=== PATIENT | female | born 1950 | race Caucasian/White ===

== ENCOUNTER 2019-06-29 08:47 | Inpatient (IN) ==
--- NOTE | 2019-06-29 10:00 | PROVIDER DOCUMENTATION ---
HPI-Musculoskeletal Pain/Inj - GENERAL Chief Complaint: Fall Stated Complaint: LT ANKLE PAIN Time Seen by Provider: 06/29/19 09:15 Source: patient, family () - HX OF PRESENT ILLNESS-MUSKULOSKELTAL Nature of Presenting Problem: Patient is a 68yo F who presents, accompanied by , with complaints of L hip and ankle pain after falling last night. Reports a month ago, she broke her L ankle, and she recently stopped wearing the walking boot. States she tripped over her cat, causing the fall. Reports she landed on her L side, hitting her head and losing consciousness briefly. Patient reports since fall, she has been unable to bear weight on her L leg, d/t hip pain. Denies headache, visual ch anges, nausea/vomiting, dizziness, neck/back pain, CP, or SOB. reports appropriate behavior for patient. Sensation intact. Decreased ROM L hip/ankle. +2 L dorsalis pedis pulse. PERRLA 2mm. EOMI. Quality of Pain: reports: aching, pressure Severity in ED: moderate Onset/Duration: last night Timing: still present Modifying Factors: improves with: nothing. worse with: movement Any recent injury?: Yes Locality of Occurance: Home Similar Symptoms Previously?: No Recently seen or treated by another doctor?: Yes (broke ankle 1 month ago) - FALL INJURY Location of Pain/Injury: reports: head (L), pelvis (L hip), lower extremity (L ankle). denies: neck, back Pain Radiation: reports: no radiation Reason for Fall: reports: tripped (over cat) Symptoms prior to fall:: reports: none Loss of Consciousness: brief (seconds) Injury Associated Symptoms: reports: joint pain (L ankle), unable to bear weight (L). denies: back/neck pain, dizziness, headaches, nausea, shortness of breath, vomiting Review of Systems - Adult - REVIEW OF SYSTEMS - ADULT Constitutional: reports: no symptoms reported. denies: chills, fever Eyes: reports: no symptoms reported. denies: decreased vision, blurred vision, double vision Ears, Nose, Mouth & Throat: reports: no symptoms reported Cardiovascular: reports: no symptoms reported. denies: chest pain, palpitations Respiratory: reports: no symptoms reported. denies: cough, shortness of breath Gastrointestinal: reports: no symptoms reported. denies: abdominal pain, nausea, vomiting Genitourinary: reports: no symptoms reported Musculoskeletal: reports: see HPI, joint pain (L ankle/hip). denies: back pain, neck pain Integumentary: reports: no symptoms reported Neurological: reports: see HPI, syncope (post fall yesterday). denies: dizziness/vertigo, headache/migraines, paresthesia Psychiatric: reports: no symptoms reported Endocrine: reports: no symptoms reported Past History - Adult - PAST MEDICAL HISTORY-ADULT Review of Records: reports: Nursing Assessment Review, Medications Reviewed, Social history reviewed & non-contributory. - IMMUNIZATION STATUS Childhood Immunizations: See Nurse Assessment Flu Vaccine: See Nurse Assessment - FAMILY HISTORY Family History: reviewed, not pertinent - SOCIAL HISTORY Smoking: other (former) Physical Exam-Injury Related - Physical Exam-Injury Related Initial Vital Signs Reviewed: Yes General Appearance: alert, mild distress. negative: lethargic, slow to respond, obtunded Eyes: PERRL/EOMI, pink conjunctivae. negative: EOM palsy, photophobia, scleral icterus Head, Ears, Nose, Mouth & Throat: normocephalic/atraumatic, moist mucous membranes. negative: angioedema Neck: non-tender, full range of motion, supple, normal inspection. negative: C-spine tenderness, limited range of motion, pain on movement Respiratory: chest non-tender, lungs clear, normal breath sounds, no pleuratic chest pain, no respiratory distress, no accessory muscle use. negative: crackles, rales, rhonchi, stridor, wheezing, retractions, splinting Cardiovascular: regular rate, rhythm, no gallop Peripheral Pulses: dorsalis-pedis (R): 2+, dorsalis-pedis (L): 2+ Abdominal Exam: non tender, soft. negative: tenderness Back Exam: normal inspection, no vertebral tenderness. negative: vertebral tenderness Extremity: normal inspection, no calf tenderness, normal capillary refill, te nderness (L ankle). negative: normal range of motion (decreased ROM L hip/ankle), normal gait (unable to bear weight L leg d/t hip pain reported by patient), abnormal NV exam, deformity, pulse deficit, slow capillary refill Integumentary: normal color, warm/dry. negative: cyanosis, jaundice, pallor Neurologic: grossly normal. negative: aphasia, EOM palsy, facial droop, motor weakness, sensory deficit Psych/Mental Status: normal mood/affect, normal thought content, normal thought process, oriented x 3 - Glascow Coma Score Best Eye Response (Brenna): (4) open spontaneously Best Verbal Response (Brenna): (5) oriented Best Motor Response (Husser): (6) obeys commands Brenna Total: 15 Progress - PLAN OF CARE/RESULTS Progress/Plan/Lab Results: Vital Signs - 8 hr 06/29/19 08:57 Temperature 98.4 F Pulse Rate 94 H Respiratory Rate 18 Blood Pressure 107/67 O2 Sat by Pulse Oximetry 94 L Laboratory Results - last 24 hr 06/29/19 06/29/19 06/29/19 09:44 09:44 09:44 WBC 7.93 RBC 4.53 Hgb 12.9 Hct 39.8 MCV 87.9 MCH 28.5 MCHC 32.4 L RDW Std Deviation 13.5 Plt Count 191 MPV 10.1 Immature Gran % (Auto) 0.3 Neut % (Auto) 74.3 Lymph % (Auto) 13.4 L [place] % (Auto) 9.7 H Eos % (Auto) 2.0 Baso % (Auto) 0.3 Immature Gran # (Auto) 0.02 Neut # (Auto) 5.90 Lymph # (Auto) 1.06 L [place] # (Auto) 0.77 H Eos # (Auto) 0.16 Baso # (Auto) 0.02 PT INR PTT (Actin FS) Sodium 138 Potassium 4.8 Chloride 100 Carbon Dioxide 26 Anion Gap 12 BUN 17 Creatinine 0.5 Estimated GFR/1.73 m2 > 60 BUN/Creatinine Ratio 34 Glucose 97 Calculated Osmolality 277 Calcium 9.0 Plasma Lactate 1.0 Blood Type Antibody Screen 06/29/19 06/29/19 09:44 11:37 WBC RBC Hgb Hct MCV MCH MCHC RDW Std Deviation Plt Count MPV Immature Gran % (Auto) Neut % (Auto) Lymph % (Auto) [place] % (Auto) Eos % (Auto) Baso % (Auto) Immature Gran # (Auto) Neut # (Auto) Lymph # (Auto) [place] # (Auto) Eos # (Auto) Baso # (Auto) PT 12.5 INR 0.93 PTT (Actin FS) 28.9 Sodium Potassium Chloride Carbon Dioxide Anion Gap BUN Creatinine Estimated GFR/1.73 m2 BUN/Creatinine Ratio Glucose Calculated Osmolality Calcium Plasma Lactate Blood Type A POSITIVE Antibody Screen NEGATIVE Orders Category Date Time Status Admit - [facility] Routine AdmDCTranf 06/29/19 13:18 Active Activity - Strict Bedrest ORDERED Care 06/29/19 13:18 Active Call Admitting on Arrival AT ADMISSION Care 06/29/19 13:18 Active NEWS Score 2-4:Order NEWS Lactate Series NOW Care 06/29/19 09:03 Active Nursing- Obtain EKG ONCE Care 06/29/19 11:35 Active Saline Loc DIRECTED Care 06/29/19 13:18 Active Vital Signs Order ORDERED Care 06/29/19 13:18 Active NPO Diet 06/29/19 11:35 Active ANKLE COMPLETE LEFT [RAD] Stat Exams 06/29/19 09:[address] HEAD W/O CONTRAST [CT] Stat Exams 06/29/19 09:[address] PELVIS W/O CONTRAST [CT] Stat Exams 06/29/19 09:36 Completed BASIC METABOLIC PANEL [CHEM] Stat Lab 06/29/19 09:44 Completed CBC WITH ELECTRONIC DIFF [HEME] Stat Lab 06/29/19 09:44 Completed LACTATE, PLASMA [CHEM] Lab 06/29/19 12:15 Uncollected LACTATE, PLASMA [CHEM] Lab 06/29/19 15:15 Uncollected LACTATE, PLASMA [CHEM] Q3H Lab 06/29/19 09:44 Completed PROTIME WITH INR [COAG] Stat Lab 06/29/19 09:44 Completed PTT [COAG] Stat Lab 06/29/19 09:44 Completed TYPE & SCREEN [BBK] Stat Lab 06/29/19 11:37 Completed EKG [EKG] Stat Ther 06/29/19 11:35 Draft Transfer/Admit Order [TRANSFER] Routine Transfer 06/29/19 11:39 Completed Lab results, imaging results, plan of care, and need for admission/surgery discussed with patient and who agree with and verbalize understanding. Result Diagrams: 06/29/19 09:44 06/29/19 09:44 - REASSESSMENT Reassessment #1 Time Reassessed: 10:47 (Ortho paged) Reassessment #2 Time Reassessed: 11:15 (Ortho paged) Reassessment #3 Time Reassessed: 11:39 Status: improving - EKG 1 Time of EKG reading by physician:: 12:02 EKG Read and Signed by:: Karl Garnica EKG Interpretation (*Must complete 3 of following elements*): Abnormal Rate: 86 Rhythm: NSR [place]: normal QRS: normal NE Interval: normal ST Wave: non-specific ST changes Prior EKG Comparison: no prior EKG Comments: Possible L atrial enlargement - XRAY 1 XRAY: Left XRAY Study: Ankle Impression: See EMR Report ([facility] - [address] [facility], [address], [place] [address] [facility] - [address] [place] [address] Department of Imaging Patient: KERA MILLERADM Date: 06/29/19MR#: [id number] : 9ADM Status: PRE ERAcct#: [id number] Age/Sex: 68/FRoom/Bed: Loc: ED Ordering Physician: Sandrine Tabares Family Physician: Marcelo Arroyo MD Reason for Procedure: Fall; new injury s/p fx Signed EXAM: ANKLE COMPLETE LEFT HISTORY: Fall; new injury s/p fx TECHNIQUE: Three views COMPARISON: None. FINDINGS: There is a transverse fracture through the lateral malleolus. This was present on the prior exam. No significant callus formation. Good alignment. No fracture to the distal tibia. IMPRESSION: Incompletely healed distal fibular fracture. Electronically signed by Froylan Medeiros 06/29/2019 10:04 AM 06/29/19 1004 Interpreting Physician: Froylan Medeiros MD Dictated Date/Time: 06/29/19 1003 cc: Sandrine Henry; Marcelo Arroyo MD) - CT/MRI 1 CT Study: Pelvis Impression: See EMR Report ([facility] - [address], [address], [place] [address] [place] [id number] Department of Imaging Patient: KERA MILLER D ate: 06/29/19MR#: [id number] : 1950DM Status: REG ERAcct#: [id number] Age/Sex: 68/FRoom/Bed: Loc: ED Ordering Physician: Sandrine Tabares Family Physician: Marcelo Arroyo MD Reason for Procedure: Unable to bear weight; L hip pain Signed CT PELVIS W/O CONTRAST - 06/29/2019 INDICATION: Unable to bear weight; L hip pain COMPARISON: None FINDINGS: There is impacted subcapital left femoral neck fracture. No dislocation. No other fractures. There is constipation with moderate rectal stool impaction. IMPRESSION: Impacted subcapital left hip fracture. This exam was performed using automated exposure control, adjustment of mA or kV according to patient size, and/or use of iterative reconstruction technique Electronically signed by Austin Judd 06/29/2019 10:40 AM 06/29/19 1040 Interpreting Physician: Austin Judd MD Dictated Date/Time: 06/29/19 1038 cc: Sandrine Henry; Marcelo Arroyo MD) 2 CT Study: Head Impression: See EMR Report ([facility] - [address], [address], [place] [address] [place] [id number] Department of Imaging Patient: KERA MILLER Date: 06/29/19MR#: [id number] : 1950DM Status: REG ERAcct#: [id number] Age/Sex: 68/FRoom/Bed: Loc: ED Ordering Physician: Sandrine Tabares Family Physician: Marcelo Arroyo MD Reason for Procedure: Head injury with LOC post fall ___ Signed CT HEAD W/O CONTRAST - 06/29/2019 INDICATION: Head injury with LOC post fall COMPARISON: 03/21/2014 FINDINGS: Stable changes of previous right frontal craniectomy. Stable encephalomalacia underneath the craniectomy. Otherwise, no intracranial mass or hemorrhage. The ventricles and sulci are otherwise normal. No significant white matter changes. No skull fracture. The sinuses, mastoids, and middle ears are clear. IMPRESSION: No acute process. This exam was performed using automated exposure control, adjustment of mA or kV according to patient size, and/or use of iterative reconstruction technique Electronically signed by Austin Judd 06/29/2019 10:38 AM 06/29/19 1038 Interpreting Physician: Austin Judd MD Dictated Date/Time: 06/29/19 1037 cc: Sandrine Henry; Marcelo Arroyo MD) - CONSULTS/PCP/HOSPITALIST Notification #1 *Consult/PCP/Hospitalist*: Elroy Calderon electronics mechanic apprentice Time Discussed: 11:33 Reason/Comments: Femoral neck fracture Consult Disposition: Admit (To Hospitalist for surgery) #2 Consult: Dr. Arroyo, PCP Time Discussed: 11:38 Reason/Comments: Femoral neck fx Consult Disposition: Admit Departure - Departure Date of Disposition Decision: 06/29/19 Time of Disposition Decision: 11:39 DIAGNOSIS: Fall Qualifiers: Encounter type: initial encounter Qualified Code(s): W19.XXXA - Unspecified fall, initial encounter Fracture of femoral neck Qualifiers: Encounter type: initial encounter Fracture type: closed Laterality: left Qualified Code(s): S72.002A - Fracture of unspecified part of neck of left femur, initial encounter for closed fracture Fracture, fibula Qualifiers: Encounter type: subsequent encounter Fibula location: distal Fracture type: closed Fracture morphology: unspecified fracture morphology Laterality: left Fracture healing: with routine healing Qualified Code(s): S82.832D - Other fracture of upper and lower end of left fibula, subsequent encounter for closed fracture with routine healing Acute head injury Qualifiers: Encounter type: initial encounter Qualified Code(s): S09.90XA - Unspecified injury of head, initial encounter Disposition: ADMITTED INPATIENT 09 Certified Medical Emergency: Emergent Condition: Stable - Critical Care Note This patient required my direct & personal management of CC.: No Attestation - Physician/ EILEEN Attestation Patient care was provided by Advanced Practice Provider:: Yes Advanced Practice Provider:: Sandrine Henry Advanced Practice Provider documentation review:: The Mid-level provider documentation, treatment plan and medical decision making was reviewed by the physician who agrees with all treatment and medical decision making by the MLP. The physician spent face to face time with patient:: No Advanced Practice Provider documentation review:: Supervising physician onsite and consulted in the evaluation and care of this patient. The physician did not have a face to face encounter with the patient.
--- NOTE | 2019-06-29 10:06 | Diag Imaging Result Doc PS360 ---
EXAM: ANKLE COMPLETE LEFT HISTORY: Fall; new injury s/p fx TECHNIQUE: Three views COMPARISON: None. FINDINGS: There is a transverse fracture through the lateral malleolus. This was present on the prior exam. No significant callus formation. Good alignment. No fracture to the distal tibia. IMPRESSION: Incompletely healed distal fibular fracture. Electronically signed by Froylan Medeiros 06/29/2019 10:04 AM
--- NOTE | 2019-06-29 10:40 | Diag Imaging Result Doc PS360 ---
CT HEAD W/O CONTRAST - 06/29/2019 INDICATION: Head injury with LOC post fall COMPARISON: 03/21/2014 FINDINGS: Stable changes of previous right frontal craniectomy. Stable encephalomalacia underneath the craniectomy. Otherwise, no intracranial mass or hemorrhage. The ventricles and sulci are otherwise normal. No significant white matter changes. No skull fracture. The sinuses, mastoids, and middle ears are clear. IMPRESSION: No acute process. This exam was performed using automated exposure control, adjustment of mA or kV according to patient size, and/or use of iterative reconstruction technique Electronically signed by Austin Judd 06/29/2019 10:38 AM
--- NOTE | 2019-06-29 10:42 | Diag Imaging Result Doc PS360 ---
CT PELVIS W/O CONTRAST - 06/29/2019 INDICATION: Unable to bear weight; L hip pain COMPARISON: None FINDINGS: There is impacted subcapital left femoral neck fracture. No dislocation. No other fractures. There is constipation with moderate rectal stool impaction. IMPRESSION: Impacted subcapital left hip fracture. This exam was performed using automated exposure control, adjustment of mA or kV according to patient size, and/or use of iterative reconstruction technique Electronically signed by Austin Judd 06/29/2019 10:40 AM
[2019-06-29 11:18] LABS: BASO# 0.02 X1000 (0.0-0.2); BASO% 0.3 % (0.0-0.8); EOS# 0.16 X1000 (0.0-0.7); HEMATOCRIT 39.8 % (37.0-47.0); HEMOGLOBIN 12.9 g/dL (12.0-16.0); IMM GRAN# 0.02 X1000 (0.0-0.04); IMM GRAN% 0.3 % (0.0-0.5); LYMPH# 1.06 X1000 (1.2-3.4); LYMPH% 13.4 % (20.5-51.1); MCH 28.5 PG (27-31); MCHC 32.4 g/dL (33-37); MCV 87.9 FL (81-99); MONO# 0.77 X1000 (0.11-0.59); MONO% 9.7 % (1.7-9.3); MPV 10.1 FL (7.4-10.4); NEUT% 74.3 % (42.2-75.2); PLT 191 X1000 (130-400); RBC 4.53 XMIL (4.2-5.4); RDW 13.5 % (11.5-14.5); WBC 7.93 X1000 (4.8-10.8)
[2019-06-29 11:26] LABS: INR 0.93; PROTIME 12.5 Seconds (11.0-16.0)
[2019-06-29 11:27] LABS: PTT 28.9 Seconds (22.3-41.8)
[2019-06-29 11:53] LABS: AGAP 12; BUN 17 mg/dL (8-22); CHLORIDE 100 mmol/L (98-107); COSMO 277; CREATININE 0.5 mg/dL (0.5-0.9); ESTIMATED GFR > 60; GLUCOSE 97 mg/dL (70-104); POTASSIUM 4.8 mmol/L (3.5-5.1); SODIUM 138 mmol/L (136-145); TCO2 26 mmol/L (25-35)
--- NOTE | 2019-06-29 12:23 | EKG Report ---
Test Performed on : 06/29/2019 11:55:37 AM Test Reason : pre-op Blood Pressure : / mmHG Vent. Rate : 086 BPM Atrial Rate : 086 BPM P-R Int : 156 ms QRS Dur : 070 ms QT Int : 358 ms P-R-T Axes : 036 012 019 degrees QTc Int : 428 ms Normal sinus rhythm. Possible Left atrial enlargement Nonspecific ST and T wave abnormality Abnormal ECG No previous ECGs available Unconfirmed Result
[2019-06-29] MEDS ORDERED: MORPHINE IV PRN (13:36)
[2019-06-29] MEDS ORDERED: ZOFRAN IV PRN ×2 (13:38→16:43)
[2019-06-29] MEDS ORDERED: KEFZOL 1 GM/D5W 2 GM/100 ML IVPB ONE (14:50)
[2019-06-29] MEDS ORDERED: XYLOCAINE-MPF 2% ONE (14:59)
[2019-06-29] MEDS ORDERED: ROBINUL ONE (14:59)
[2019-06-29] MEDS ORDERED: FENTANYL ONE (14:59)
[2019-06-29] MEDS ORDERED: KETAMINE ONE (14:59)
[2019-06-29] MEDS ORDERED: VERSED ONE (14:59)
[2019-06-29] MEDS ORDERED: DECADRON ONE (15:38)
[2019-06-29] MEDS ORDERED: ZOFRAN ONE (15:38)
[2019-06-29] MEDS ORDERED: TORADOL ONE (15:38)
[2019-06-29] MEDS ORDERED: OFIRMEV 1000 MG/ISOTONIC SOLN 1,000 MG/100 ML BOTTLE ONE (15:38)
[2019-06-29] MEDS ORDERED: DIPRIVAN 1% ONE (15:52)
[2019-06-29] MEDS ORDERED: NEO-SYNEPHRINE ONE (16:03)
[2019-06-29] MEDS ORDERED: BENADRYL ONE (16:15)
[2019-06-29] MEDS ORDERED: SENSORCAINE-MPF 0.5%/EPI 1:200,000 ONE (16:16)
[2019-06-29] MEDS ORDERED: MILK OF MAGNESIA PO PRN (16:43)
[2019-06-29] MEDS ORDERED: NS 1,000 ML ONE (16:43)
[2019-06-29] MEDS ORDERED: HALDOL IV PRN (16:43)
[2019-06-29] MEDS: DILAUDID ONE ×2 (16:52→16:55)
--- NOTE | 2019-06-29 16:52 | ORTHOPAEDICS CONSULTATION ---
DATE: 06/29/2019 SERVICE: Orthopedic surgery. REASON FOR CONSULTATION: Consult from [facility] ER. Left hip fracture. PAST MEDICAL HISTORY: 1. Hypertension. 2. Degenerative disc disease. PAST SURGICAL HISTORY: 1. Excision of meningioma. 2. Breast reduction. 3. Face-lift. MEDICATIONS: 1. Losartan. 2. Lexapro. 3. Omeprazole. ALLERGIES: Patient reports allergy to Neosporin, which caused her to itch. She states her dad had an allergy to penicillin. However, she has not had any reaction to it. SOCIAL HISTORY: The patient lives in [place]. She is a community ambulator without any assistive device. She still drives. She is retired. She denies any tobacco use. Reports occasional alcohol use. FAMILY HISTORY: Noncontributory. REVIEW OF SYSTEMS: Ten point review of systems completed is negative other than what is listed in history of present illness. CHIEF COMPLAINT: Left hip pain. HISTORY OF PRESENT ILLNESS: Ms Hess is a 68-year-old lady who presents to [facility] ER after sustaining a same-level fall at home the previous night. Patient states she tripped over her cat, causing her fall on the left. She states she was able to put some weight on the leg and get around last night, however, was having significant pain with ambulation and thus presented to the ER this morning. Patient denies any other injuries. She has no other complaints. PHYSICAL EXAMINATION: General: Ms. Hess is a 68-year-old female, appears well nourished, well developed, no acute distress. She is awake, alert, and oriented x3. She is very polite and cooperative during examination. Vital Signs: Temperature 98.3 degrees Fahrenheit, heart rate 84, respiratory rate 18, blood pressure 138/74. HEENT: Normocephalic and atraumatic. Respiratory: Nonlabored breathing. Cardiovascular: Regular rate and rhythm. Lower Extremities: Examination of left lower extremity shows skin intact. Tender to palpation anteriorly over left groin as well as laterally over the left hip. Nontender over her thigh, knee, leg, ankle and foot. Motor is intact, EHL, tibialis anterior, gastrocsoleus complex. Sensation intact to light touch L3-S1. Dorsalis pedis pulse palpable and equal bilaterally. Patient has a removable ASO brace on the left ankle due to prior ankle lateral malleolus ankle fracture about three weeks ago, which was then treated nonoperatively. She has minimal tenderness to palpation over lateral malleolus fracture site. Upper Extremities: Skin intact. Full painless range of motion of her arms. Neurovascularly intact. IMAGING: CT scan of the pelvis was reviewed demonstrating a valgus impacted femoral neck fracture with minimal displacement. LABS: White count 8, hemoglobin 13, hematocrit 40, platelets 191,000. INR is 0.9. ASSESSMENT: A 68-year-old female with left valgus impacted femoral neck fracture. PLAN: 1. A long discussion was had with patient and her regarding diagnosis and treatment options. Given her fracture pattern and the fact that she was able to bear weight on it and ambulate last night and this morning, I think she would benefit from closed reduction, percutaneous pinning. Risks, benefits, alternative therapies were discussed with the patient and regarding surgery. Risks of surgery include but are not limited to risks of bleeding, infection, damage to nerves and vessels around the area, continued pain following surgery, failure of fixation and need for revision surgery. There is also risk of anesthesia including blood clot, stroke, heart attack, even . Patient understands these risks. All questions were answered. Informed consent was obtained. 2. The patient has been n.p.o. since last night. We will plan on closed reduction and percutaneous pinning of her left femoral neck fracture this afternoon. She will be admitted to the hospitalist. 3. We will start chemical DVT prophylaxis postoperatively. 4. Ice to left lower extremity as needed for pain. 5. Appreciate Dr. Arroyo' recommendations. cc: Marcelo Arroyo MD
[2019-06-29] MEDS ORDERED: XANAX PO PRN (18:24)
[2019-06-29] MEDS ORDERED: FLU VACCINE IM ONE (19:58)
[2019-06-29] MEDS ORDERED: PREVNAR 13 IM ONE (19:59)
--- NOTE | 2019-06-29 20:25 | HISTORY AND PHYSICAL ---
PRIMARY CARE PHYSICIAN: Dr. Marcelo Arroyo. CHIEF COMPLAINT: Left hip pain. HISTORY OF PRESENT ILLNESS: A 68-year-old white female with a complicated past medical history presents for evaluation of above-mentioned symptoms. Current history of present illness began at approximately 10 o'clock yesterday evening. The patient states she was walking and unfortunately tripped falling striking her left hip. She denied having a loss of consciousness. She immediately developed considerable pain. Her was able to assist her to her feet. Ultimately, she was assisted to the bed and rested through the night. This morning upon awakening patient was noted to have increasing pain to the left hip. Patient presented to the emergency department for further evaluation and management. Upon arrival, full evaluation was pursued. The patient was found to have an impacted left subcapital left hip fracture. The patient will be admitted to the hospital for full evaluation and management of this condition. Of note, the patient recently was diagnosed with a distal fibular fracture. X-ray of the left ankle reveals an incompletely healed fracture. Pain is reasonably controlled in this regard. She denies fevers, chills, nausea, vomiting, shortness of breath, chest discomfort, dysuria, hematuria, pyuria, or change in bowel movements. PAST MEDICAL HISTORY: 1. Abnormal electrocardiogram with nonspecific T-wave abnormalities. 2. Allergic rhinitis. 3. Anxiety/depression. 4. Insomnia. 5. Reflux disease. 6. Hypertension. 7. History of premenopausal menorrhagia status post ZORAIDA in 2001. 8. Nonalcoholic fatty liver disease. 9. Hidradenitis suppurativa. 10. Hyperlipidemia. 11. Impaired fasting glucose. 12. Low back pain. 13. History of an intracranial meningioma diagnosed after an acute seizure requiring resection in 2013. 14. History of tobacco use. 15. Osteoarthritis. 16. Chronic pruritus. 17. Psoriasis. 18. Varicose veins. CURRENT MEDICATIONS: 1. Amlodipine 2.5 mg twice daily. 2. B complex vitamin daily. 3. Cyclobenzaprine 1 tablet 3 times daily as needed. 4. Hydroxyzine 25 mg at bedtime. 5. Lexapro 20 mg daily. 6. Losartan 100 mg daily. 7. Meloxicam 15 mg daily as needed. 8. Ocuvite tablets daily. 9. Omeprazole 40 mg daily as needed. 10. Voltaren Gel as needed. 11. Xanax 0.25 mg twice daily as needed. ALLERGIES: Patient states she is allergic to Neosporin which causes a rash, penicillin which potentially causes anaphylaxis, and trazodone which is ineffective. SOCIAL HISTORY: The patient is a previous smoker having smoked 1/2 pack per day for 20 years. She quit in 2006. She has approximately 1 drink of alcohol per day. She denies illicit drug use. She is retired from the [employer]. She enjoys horses and pottery. She exercises routinely. FAMILY HISTORY: Patient's father passed at age 78 secondary to complications of pneumonia and Alzheimer dementia. Patient's mother passed at age 98 secondary to complications of congestive heart failure. She had a history of hypertension, hyperlipidemia, and dementia. REVIEW OF SYSTEMS: A 12 point review of systems was performed. Pertinent positives and negatives noted in history present illness. PHYSICAL EXAMINATION: VITAL SIGNS: Temperature 97.6 degrees, heart rate 81, respirations 20, blood pressure is 128/77. GENERAL: Well nourished, well developed, no acute distress. HEENT: Normocephalic, atraumatic. Pupils equal, round, reactive to light. Extraocular muscles intact. Sclerae anicteric. [place] conjunctivae. Oral and nasopharynx clear without exudate. NECK: Supple. No lymphadenopathy. No thyromegaly. No bruits auscultated. CARDIOVASCULAR: Regular rate and rhythm. No significant murmurs, rubs, or gallops. PULMONARY: Clear to auscultation bilaterally. ABDOMEN: Soft, nontender, nondistended. Positive bowel sounds. EXTREMITIES: Moves her right lower extremity well. Left lower extremity has pain with any movement. No significant clubbing, cyanosis, or edema. NEUROLOGICAL: Cranial nerves 2-12 grossly intact. Motor and sensory grossly intact. PSYCHOLOGIC: Appropriate. LABORATORY DATA: White blood cell count 7.93, hemoglobin 12.9, hematocrit 39.8, platelet count 191,000. PT 12.5, INR 0.93, PTT is 28.9. Sodium 138, potassium 4.8, chloride 100, bicarb 26, BUN 17, creatinine 0.5 glucose 97, calcium 9.0. RADIOLOGIC DATA: CT scan of the head revealed no acute process. CT scan of the pelvis revealed impacted subcapital left hip fracture. Ankle x-ray revealed incompletely healed distal fibular fracture. ASSESSMENT AND PLAN: A 68-year-old white female with past medical history as noted presents for evaluation of left hip and left ankle pain. Left hip CT suggests subcapsular left hip fracture. Left ankle suggests an incompletely healed fibular fracture. Patient will be admitted to the hospital for full evaluation and management of each of these conditions. 1. Admit to [address] [place] [address]. 2. Left hip fracture-the patient will be taken for surgical intervention by Dr. Odonnell. Postoperative orders will be per his discretion. For now, we will continue symptomatic management. 3. Left ankle fracture-this appears to be a healing fracture. We will defer management to Dr. Odonnell. 4. Hypertension-we will continue patient on her home medical regimen. We will remain very aware of serial blood pressure evaluations in the setting of narcotic pain intervention. 5. Impaired fasting glucose-this is historical. We will monitor patient's blood sugars while hospitalized. 6. History of a meningioma-CT scan suggests no evidence of acute disease. We will remain aware. 7. Chronic pruritus-we will continue patient on hydroxyzine therapy. 8. Fluid, electrolytes, nutrition. We will monitor electrolytes. Normal saline at 75 mL an hour. Regular diet. 9. Prophylaxis. We will plan to initiate enoxaparin once able per Dr. Odonnell. cc: Marcelo Arroyo MD
--- NOTE | 2019-06-29 20:40 | OPERATIVE NOTE ---
PROCEDURE DATE: 06/29/2019 PREOPERATIVE DIAGNOSES: Valgus impacted femoral neck fracture. POSTOPERATIVE DIAGNOSIS: Valgus impacted femoral neck fracture. . PROCEDURE: Closed reduction and percutaneous pinning left valgus impacted femoral neck fracture. SURGEON: Dr. Edgar Odonnell. ASSISTANTS: None. ANESTHESIA: Spinal. COMPLICATIONS: None. SPECIMENS: None. DRAINS: None. BLOOD LOSS: 20 mL. IMPLANTS: Synthes 7.3 mm titanium cannulated screws x3. All measuring 85 mm. INDICATIONS FOR PROCEDURE: Ms. Hess is a 68-year-old lady who sustained a same-level fall the night before admission at her house. She was able to ambulate after the fall, however, was having significant pain and thus presented to the ER this morning. X-rays taken demonstrated a valgus impacted femoral neck fracture. Given these findings and her fracture pattern, decision was made to proceed to the operating room for closed reduction and percutaneous pinning. Risks, benefits, alternative therapies were discussed with the patient and regarding surgery. Risks of surgery include but not limited to risks of bleeding, infection, damage to nerves and vessels around the area, continued pain following surgery, malunion, nonunion, need for revision surgery. Also risks of anesthesia including blood clot, stroke, heart attack, even . Patient understands these risks. All questions were answered. Informed consent was obtained. PROCEDURE IN DETAIL: Ms. Hess was identified by wristband and greeted in preop holding area on 06/29/2019. Her left lower extremity, which was the operative site, was marked with indelible ink per [facility] protocol. Following this, the patient was transferred back to the operating room for surgery. Upon entering the OR, spinal anesthetic was placed on her hospital bed. She was then transferred over to the [place] table in supine position. All bony prominences were well padded. Bilateral feet were placed into the boot holders into a scissor position. At this time, the right left lower extremity was prepped and draped in routine sterile fashion. Formal time-out was performed, confirming correct patient, procedure, operative site, operative side, administration of preop antibiotics. I was in agreement. Patient received 2 g Ancef prior to incision. Fluoroscopy was brought in to localize the position of our pins and incision. A 10 blade knife was then used to make standard 3 cm longitudinal incision on the lateral aspect of the thigh. Knife used to dissect through skin, subcutaneous fat, and IT band. At this time, the guide pin for the screws was then placed on the lateral femoral cortex. We first placed the pin for our inferior central screw. We were satisfied with pin placement on AP and lateral views. It was then driven up across the fracture site, hugging the medial calcar. Following this, the honeycomb device was used for localization and placement of our anterior superior pin in similar fashion. We were satisfied with this position. We lastly placed a posterior superior pin in similar fashion. AP and lateral images were again taken confirming appropriate position of pins as well as length of the pins. We then proceeded with measuring the inferior pin which measured to be 85 mm. Drill was used to drill the lateral cortex and a partially threaded 7.3 mm titanium cannulated screw was placed, which had excellent purchase. Following this, similar steps were used to place our anterior superior screw which was measured to be 85 mm as well as her posterior superior screw which was 85 mm. Once all screws were in, we then tightened all them sequentially. All screws had excellent purchase. Once this was done, guidewires were pulled. X-ray was then used to take and save final AP and lateral images of the hip. We also took images of the hip going from straight AP every 15 degrees over to past a full lateral in order to ensure no penetration of the screw threads into the joint. We were satisfied with screw placement and fixation of the fracture. At this time, wound was copiously irrigated with normal saline. 0 Vicryl suture was then used to close the IT band followed by 2-0 Vicryl suture for subcutaneous tissue closure. [place] for skin closure. Then 20 mL of 0.25% Marcaine with epinephrine were then injected around the incision site. Wound was then dressed with Xeroform, 4 x 4, and island dressing. At this time patient was then awoken, transferred over hospital stretcher and taken to recovery in stable condition. There were no acute complications during the procedure. All sponge and sharp counts were correct at conclusion of procedure. cc: Marcelo Arroyo MD
[2019-06-29] MEDS: COLACE PO SCH (21:03)
[2019-06-29] MEDS: PERIDEX MT SCH (21:03)
[2019-06-29] MEDS: ATARAX PO SCH (21:03)
[2019-06-29] MEDS: OXY IR PO PRN (21:04)
[2019-06-29] MEDS: COZAAR PO SCH (21:10)
--- NOTE | 2019-06-29 21:33 | Diag Imaging Result Doc PS360 ---
EXAM: CHEST-1 VIEW HISTORY: NEWS Bundle TECHNIQUE: Single view COMPARISON: 05/10/2019 FINDINGS: The lungs are well expanded. The heart is not enlarged. The vessels are not distended. There are no infiltrates. No effusion identified. IMPRESSION: Negative exam. Electronically signed by Froylan Medeiros 06/29/2019 9:31 PM
[2019-06-29 22:37] LABS: URINE SOURCE CLEAN CATCH
[2019-06-29 22:39] LABS: BILIRUBIN URINE NEGATIVE (NEGATIVE); BLOOD URINE NEGATIVE (NEGATIVE); COLOR YELLOW; GLUCOSE URINE NEGATIVE (NEGATIVE); KETONE URINE NEGATIVE (NEGATIVE); LEUKOCYTES URINE NEGATIVE (NEGATIVE); NITRITE URINE NEGATIVE (NEGATIVE); PROTEIN URINE NEGATIVE (NEGATIVE); TURBIDITY URINE CLEAR (CLEAR); UR EPITHELIAL CELLS <10 /HPF (<10); URINE BACTERIA NEGATIVE /HPF; URINE RBC <10 /HPF (<10); URINE WBC <10 /HPF (<10); UROBILINOGEN URINE NORMAL (NORMAL)
[2019-06-30] MEDS: MORPHINE IV PRN ×2 (01:26→23:40)
[2019-06-30] MEDS: NS 1,000 ML IV SCH ×2 (04:54→05:20)
[2019-06-30] MEDS: LOVENOX SUBQ SCH (05:20)
[2019-06-30 07:47] LABS: BASO# 0.01 X1000 (0.0-0.2); BASO% 0.1 % (0.0-0.8); HEMATOCRIT 37.7 % (37.0-47.0); LYMPH# 0.88 X1000 (1.2-3.4); LYMPH% 11.9 % (20.5-51.1); MCH 28.3 PG (27-31); MCHC 31.8 g/dL (33-37); MCV 88.9 FL (81-99); MONO# 0.51 X1000 (0.11-0.59); MONO% 6.9 % (1.7-9.3); NEUT# 5.99 X1000 (1.4-6.5); NEUT% 81.1 % (42.2-75.2); PLT 177 X1000 (130-400); RBC 4.24 XMIL (4.2-5.4); RDW 13.4 % (11.5-14.5); WBC 7.39 X1000 (4.8-10.8)
[2019-06-30 08:18] LABS: AGAP 7; BUN 12 mg/dL (8-22); CALCIUM 9.1 mg/dL (8.8-10.2); CHLORIDE 103 mmol/L (98-107); COSMO 278; CREATININE 0.5 mg/dL (0.5-0.9); ESTIMATED GFR > 60; GLUCOSE 138 mg/dL (70-104); SODIUM 138 mmol/L (136-145); TCO2 28 mmol/L (25-35)
--- NOTE | 2019-06-30 09:54 | ORTHOPAEDICS PROGRESS NOTE ---
DATE: 06/30/2019 SUBJECTIVE: No acute events overnight. The patient is doing well. She reports minimal pain in the hip. She has tolerated a diet. She has been urinating voluntarily. She states she is ready for Physical Therapy. OBJECTIVE: Vital signs: Hematocrit is 38. Afebrile. Vital signs stable. Extremities: Examination of the left lower extremity shows surgical dressing to be clean, dry, intact. No erythema or sign of infection. Thigh and calf soft and compressible. Motor is intact, EHL, tibialis anterior, gastrocsoleus complex. Sensation intact to light touch L3 to S1. Dorsalis pedis pulse palpable. ASSESSMENT: A 68-year-old female status post closed reduction and percutaneous pinning of left femoral neck fracture. Postoperative day 1. PLAN: 1. Patient is weightbearing as tolerated left lower extremity. Physical Therapy to mobilize with rolling walker. She has a left lateral malleolus ankle fracture as well that is now almost 4 weeks out. She has been treated by Dr. Luna for this and is weightbearing as tolerated on the ankle in her lace-up ASO brace. 2. Ice to left thigh as needed for pain. 3. Lovenox DVT prophylaxis. Patient will need to be discharged on aspirin 325 mg daily for [address] Arroyo' recommendations and medical management. 5. Disposition per Primary team. Will see how she does with Physical Therapy. She is anxious to go home if possible. I think doing home with home health would be reasonable as long she mobilizes okay with the therapist. I will plan on seeing her in clinic in 2 weeks for wound check and x-rays. cc: Marcelo Arroyo MD
[2019-06-30] MEDS: PERIDEX MT SCH ×2 (10:04→23:40)
[2019-06-30] MEDS: FERROUS SULFATE PO SCH (10:05)
[2019-06-30] MEDS: LEXAPRO PO SCH (10:05)
[2019-06-30] MEDS: OXY IR PO PRN ×3 (10:05→18:46)
[2019-06-30] MEDS ORDERED: PRILOSEC PO ONE (11:09)
[2019-06-30] MEDS ORDERED: FLEXERIL PO PRN (11:11)
--- NOTE | 2019-06-30 12:39 | PROGRESS NOTE ---
DATE: 06/30/2019 SUBJECTIVE: Upon my arrival, patient was sitting upright in her chair. Overall, patient states she had a reasonable night. She is postoperative day #1 surgical intervention to a left hip fracture. Pain is reasonably controlled. She worked with physical therapy and did reasonably well this morning. Oral intake is adequate. She denies fevers, chills, nausea, vomiting, shortness of breath, or chest discomfort. OBJECTIVE: Vitals: Temperature max 98.3 degrees, heart rate 78-96, respirations 16-20, blood pressure 136-154/68-92. General: Well nourished, well developed, in no acute distress. Cardiovascular: Regular rate and rhythm. No significant murmurs, rubs, or gallops. Pulmonary: Clear to auscultation bilaterally. Abdomen: Soft, nontender, nondistended. Positive bowel sounds. Extremities: Moves all extremities well. No significant clubbing, cyanosis, or edema. Dermatologic: Evaluation reveals a dressed surgical site to the left hip. LABORATORY DATA: White blood cell count 7.39, hemoglobin 12.0, hematocrit 37.7, platelet count a 177,000, sodium 138, potassium 5.0, chloride 103, bicarb 28, BUN 12, creatinine 0.5, glucose 138, calcium 9.1. ASSESSMENT AND PLAN: 1. Left hip fracture - Patient is postoperative day closed reduction and percutaneous pinning of left valgus impacted femoral neck fracture. Patient tolerated the procedure quite well. This morning, patient did ambulate with physical therapy. For now, we will continue postoperative orders per Dr. Odonnell. The pain is currently controlled. 2. Left ankle fracture - This is approximately 1 month from diagnosis. X-ray suggested partial healing. We will continue weightbearing as tolerated per Dr. Odonnell's recommendation. 3. Hypertension - Blood pressure today is slightly elevated. We will resume her home medications including losartan and amlodipine therapy. We will follow this. 4. Impaired fasting glucose - Diagnosis is historical. Fasting glucose this morning was 138. We will remain aware. 5. History of an intracranial meningioma - CT scan suggested no evidence of acute disease yesterday. We will remain aware. 6. Chronic pleuritis - We will continue hydroxyzine therapy. 7. Disposition - At this point, patient continues to require assisted care in a hospital setting. With her fracture and limited assistance at home, I suspect patient will require hospitalization through the weekend. I did, however, discuss that if she demonstrates significant improvement over the next 24 hours, we will consider discharge home tomorrow. cc: Marcelo Arroyo MD
[2019-06-30] MEDS: COZAAR PO SCH (23:40)
[2019-06-30] MEDS: COLACE PO SCH (23:41)
[2019-06-30] MEDS: NORVASC PO SCH (23:41)
[2019-06-30] MEDS: ATARAX PO SCH (23:41)
[2019-07-01] MEDS: MORPHINE IV PRN ×3 (03:37→23:28)
[2019-07-01] MEDS: PRILOSEC PO SCH (06:20)
[2019-07-01] MEDS: LOVENOX SUBQ SCH (06:21)
[2019-07-01 07:44] LABS: HEMATOCRIT 36.3 % (37.0-47.0); HEMOGLOBIN 11.4 g/dL (12.0-16.0)
[2019-07-01] MEDS: NORVASC PO SCH ×2 (08:07→23:24)
[2019-07-01] MEDS: PERIDEX MT SCH ×2 (08:07→23:32)
[2019-07-01] MEDS: LEXAPRO PO SCH (08:08)
[2019-07-01] MEDS: FERROUS SULFATE PO SCH (08:08)
[2019-07-01] MEDS ORDERED: DILAUDID IV ONE (09:49)
--- NOTE | 2019-07-01 11:45 | PROGRESS NOTE ---
DATE: 07/01/2019 SUBJECTIVE: Mrs. Hess is status post closed reduction and percutaneous pinning of the left valgus impacted femoral neck fracture. She worked with Physical Therapy twice. She was able to walk 40 feet with assistance. She is having significant pain today. She reports that her pain is a 7/10 on a scale of 1 to 10. She does not feel that either the OxyIR or the IV morphine are holding her pain. OBJECTIVE: Vital Signs: Her blood pressure is stable. Today, her blood pressure was 145/73, temperature 97.5 degrees, pulse 86, respirations 18, BP 145/73. CV: Regular rate and rhythm. Lungs: Clear. Abdomen: Soft, nontender with active bowel sounds. No hepatosplenomegaly. No abdominal bruits. ASSESSMENT AND PLAN: 1. Left hip fracture. She is having significant pain. She worked with Physical Therapy twice. I am going to bolus her with Dilaudid 2 mg intravenously x1 dose in the hopes of improving her pain control. She then may alternate the OxyIR and intravenous morphine as indicated. Given the worsening pain and limited mobility, I do not believe that she is ready for discharge. I believe that she would benefit from further physical therapy. She certainly is at a high fall risk at this time. 2. Hypertension. Blood pressure is stable. We will continue her current regimen of medications. cc: MD Marcelo Saba MD
[2019-07-01] MEDS ORDERED: LEVAQUIN PO ONE (12:46)
--- NOTE | 2019-07-01 13:11 | Diag Imaging Result Doc PS360 ---
EXAM: CHEST-PORTABLE - 07/01/2019 HISTORY: Low O2 TECHNIQUE: Portable chest COMPARISON: 06/29/2019 FINDINGS: Heart size appears borderline enlarged and stable to slightly increased compared to prior. There is mild prominence of central vascular markings which is stable. There is stable slight subsegmental atelectasis or scarring at the left base. There is no acute consolidation, pleural effusion, or pneumothorax identified. IMPRESSION: Borderline cardiomegaly. Stable slight prominence of central vascular markings. Electronically signed by Petros Olivo 07/01/2019 1:09 PM
[2019-07-01 13:35] LABS: BASO# 0.03 X1000 (0.0-0.2); BASO% 0.3 % (0.0-0.8); EOS# 0.41 X1000 (0.0-0.7); EOS% 4.2 % (0.0-10.0); HEMATOCRIT 36.7 % (37.0-47.0); HEMOGLOBIN 11.9 g/dL (12.0-16.0); IMM GRAN# 0.03 X1000 (0.0-0.04); IMM GRAN% 0.3 % (0.0-0.5); LYMPH# 1.58 X1000 (1.2-3.4); LYMPH% 16.2 % (20.5-51.1); MCHC 32.4 g/dL (33-37); MCV 89.3 FL (81-99); MONO# 1.06 X1000 (0.11-0.59); MONO% 10.9 % (1.7-9.3); MPV 9.7 FL (7.4-10.4); NEUT# 6.65 X1000 (1.4-6.5); NEUT% 68.1 % (42.2-75.2); PLT 186 X1000 (130-400); RBC 4.11 XMIL (4.2-5.4); RDW 13.7 % (11.5-14.5); WBC 9.76 X1000 (4.8-10.8)
[2019-07-01 15:46] LABS: URINE SOURCE CLEAN CATCH
[2019-07-01 15:48] LABS: UR EPITHELIAL CELLS <10 /HPF (<10); URINE BACTERIA NEGATIVE /HPF; URINE RBC <10 /HPF (<10); URINE WBC 20-40 /HPF (<10)
[2019-07-01 15:49] LABS: BILIRUBIN URINE NEGATIVE (NEGATIVE); BLOOD URINE NEGATIVE (NEGATIVE); COLOR YELLOW; GLUCOSE URINE NEGATIVE (NEGATIVE); KETONE URINE NEGATIVE (NEGATIVE); LEUKOCYTES URINE MODERATE (NEGATIVE); NITRITE URINE NEGATIVE (NEGATIVE); PROTEIN URINE 30 mg/dL (NEGATIVE); SP GRAVITY URINE 1.028; TURBIDITY URINE CLEAR (CLEAR); UROBILINOGEN URINE 2 mg/dL (NORMAL)
[2019-07-01] MEDS: OXY IR PO PRN (18:22)
[2019-07-01] MEDS: COLACE PO SCH (23:24)
[2019-07-01] MEDS: COZAAR PO SCH (23:24)
[2019-07-01] MEDS: ATARAX PO SCH (23:25)
[2019-07-02] MEDS: OXY IR PO PRN ×3 (04:55→17:41)
[2019-07-02] MEDS: PRILOSEC PO SCH (06:08)
[2019-07-02] MEDS: LOVENOX SUBQ SCH (06:08)
[2019-07-02 08:03] LABS: HEMATOCRIT 35.4 % (37.0-47.0)
[2019-07-02] MEDS: FERROUS SULFATE PO SCH (08:03)
[2019-07-02] MEDS: NORVASC PO SCH ×2 (08:03→22:44)
[2019-07-02] MEDS: LEVAQUIN PO SCH (08:03)
[2019-07-02] MEDS: LEXAPRO PO SCH (08:03)
[2019-07-02] MEDS: PERIDEX MT SCH ×2 (08:04→22:45)
--- NOTE | 2019-07-02 20:48 | ORTHOPAEDICS PROGRESS NOTE ---
DATE: 07/02/2019 SUBJECTIVE: No acute events overnight. Patient is doing okay overall. She is having some pain in her hip. She did ambulate 120 feet with physical therapy today. She also reports mild pain in her ankle from her prior ankle fracture. She states she is not having much of an appetite. She had a bowel movement yesterday. She is urinating voluntarily. OBJECTIVE: Afebrile. Vital signs stable. Hematocrit 35.Extremities: Examination of left lower extremity shows surgical incision to be clean, dry, intact with bandage in place. No drainage or sign of infection. Thigh and calf soft and compressible. She has some mild tenderness to palpation of her lateral malleolus ankle fracture. Her Velcro ASO brace is intact in good position. Toes are up and downgoing. Neurovascularly intact. ASSESSMENT: A 68-year-old female status post closed reduction and percutaneous pinning of left femoral neck fracture. Postoperative day 3. She has also had closed treatment of left lateral malleolus ankle fracture that is now about 4 weeks out. PLAN: 1. The patient can continue to be weightbearing as tolerated left lower extremity. She will need to use a walker to ambulate. Physical therapy to mobilize. 2. Lovenox DVT prophylaxis. 3. Ice left lower extremity as needed for pain. 4. Appreciate hospitalist recommendations. 5. Disposition per primary team. Patient is planning on being discharged to inpatient rehab once a bed is available. She will follow up with me in clinic in 2 weeks for serial x-rays. cc: Marcelo Arroyo MD
--- NOTE | 2019-07-02 20:48 | PROGRESS NOTE ---
DATE: 07/02/2019 SUBJECTIVE: The patient's chart was reviewed. Yesterday, upon my absence, patient spiked a temperature to 102.1 degrees. Urine culture was performed, which returned negative. Patient was started on levofloxacin therapy. Yesterday, patient noted increasing pain with physical therapy. This morning, patient stated she was feeling reasonably well. She rested overnight. She continues to require pain medications to maintain adequate control of her pain. Over the course of the day, patient worked with physical therapy. This evening, patient notes she is uncomfortable, but pain is reasonably controlled. Last temperature was noted at 7:00 this morning. There has been no evidence of nausea, vomiting, or chest discomfort. She is requiring oxygen supplementation to maintain adequate saturations. OBJECTIVE: Vital signs: T-max 102.1 degrees, heart rate 86 to 122, respirations 16 to 20, blood pressure 122 to 145 over 52 to 63. General: Well nourished, well developed in no acute distress. Cardiovascular: Regular rhythm. Slightly tachycardic. No significant murmurs, rubs, or gallops. Pulmonary: Clear to auscultation bilaterally. Abdomen: Soft, nontender, nondistended. Positive bowel sounds. Extremities: Moves all extremities well. No significant clubbing, cyanosis, or edema. Dermatologic evaluation: Reveals no evidence of rash. LABORATORY DATA: Hemoglobin 11.0, hematocrit 35.4. ASSESSMENT AND PLAN: 1. Left hip fracture--Patient is postoperative day #3, closed reduction and percutaneous pinning of the left valgus impacted femoral neck fracture. She tolerated the procedure quite well. Pain is reasonably controlled with narcotic pain intervention. She is working with physical therapy, although is experiencing slow progression. At this point, patient will most benefit from rehabilitation. We will plan transfer there in the near future. 2. Fevers--This likely is postoperative; however, I cannot fully rule out underlying infectious etiology. A urine culture returned negative. For now, we will continue levofloxacin. 3. Hypoxia--Patient is being treated with oxygen per protocol. We will anticipate discontinuing this in the next 24 hours. 4. Left ankle fracture--This was diagnosed approximately 1 month prior to admission. She is currently being treated with weightbearing as tolerated. 5. Hypertension--Blood pressure is reasonably controlled on her home regimen. 6. Impaired fasting glucose--We will continue to follow. At this point, no medical intervention is warranted. 7. History of intracranial meningioma--CT scan suggested no acute disease upon admission. We will remain aware. 8. Chronic pruritus--The patient is treated with hydroxyzine therapy. Symptoms are controlled. 9. Disposition--At this point, patient continues to require [facility] care in the hospital setting. I anticipate discharge to rehabilitation in the next 24-48 hours. cc: Marcelo Arroyo MD
[2019-07-02] MEDS ORDERED: HALL'S COUGH LOZENGE MT PRN (20:50)
[2019-07-02] MEDS: COLACE PO SCH (22:44)
[2019-07-02] MEDS: ATARAX PO SCH (22:44)
[2019-07-02] MEDS: COZAAR PO SCH (22:45)
[2019-07-03 06:27] LABS: BASO# 0.03 X1000 (0.0-0.2); BASO% 0.4 % (0.0-0.8); EOS# 0.34 X1000 (0.0-0.7); EOS% 4.5 % (0.0-10.0); HEMATOCRIT 32.7 % (37.0-47.0); HEMOGLOBIN 10.4 g/dL (12.0-16.0); IMM GRAN# 0.02 X1000 (0.0-0.04); IMM GRAN% 0.3 % (0.0-0.5); LYMPH# 1.24 X1000 (1.2-3.4); LYMPH% 16.3 % (20.5-51.1); MCH 28.7 PG (27-31); MCHC 31.8 g/dL (33-37); MCV 90.1 FL (81-99); MONO# 0.95 X1000 (0.11-0.59); MONO% 12.5 % (1.7-9.3); MPV 9.3 FL (7.4-10.4); NEUT# 5.04 X1000 (1.4-6.5); PLT 185 X1000 (130-400); RBC 3.63 XMIL (4.2-5.4); RDW 13.3 % (11.5-14.5); WBC 7.62 X1000 (4.8-10.8)
[2019-07-03 06:46] LABS: AGAP 10; ALBUMIN 3.1 g/dL (3.5-5.0); ALKALINE PHOSPHATASE 47 U/L (32-104); BUN 9 mg/dL (8-22); CALCIUM 8.5 mg/dL (8.8-10.2); CHLORIDE 100 mmol/L (98-107); COSMO 272; CREATININE 0.5 mg/dL (0.5-0.9); ESTIMATED GFR > 60; GLUCOSE 115 mg/dL (70-104); GOT 13 U/L (10-30); GPT 15 U/L (10-36); POTASSIUM 3.9 mmol/L (3.5-5.1); SODIUM 136 mmol/L (136-145); TCO2 26 mmol/L (25-35); TOTAL BILIRUBIN 1.16 mg/dL (0.20-1.00); TOTAL PROTEIN 6.1 g/dL (6.3-8.3)
[2019-07-03] MEDS: PRILOSEC PO SCH (07:14)
[2019-07-03] MEDS: LOVENOX SUBQ SCH (07:14)
[2019-07-03] MEDS ORDERED: TYLENOL PO PRN (08:06)
--- NOTE | 2019-07-03 08:53 | Diag Imaging Result Doc PS360 ---
EXAM: CHEST-2 VIEWS HISTORY: hypoxia TECHNIQUE: Two views COMPARISON: 07/01/2019 FINDINGS: The left marker was placed on the right. The lungs are well expanded. The heart is not enlarged. The vessels are not distended. There are no infiltrates. Tiny pleural effusions. IMPRESSION: Tiny pleural effusions. Electronically signed by Froylan Medeiros 07/03/2019 8:51 AM
[2019-07-03] MEDS: NORVASC PO SCH ×2 (09:32→20:19)
[2019-07-03] MEDS: LEVAQUIN PO SCH (09:32)
[2019-07-03] MEDS: LEXAPRO PO SCH (09:33)
[2019-07-03] MEDS: FERROUS SULFATE PO SCH (09:33)
[2019-07-03] MEDS: PERIDEX MT SCH ×2 (09:34→20:19)
[2019-07-03] MEDS: OXY IR PO PRN ×2 (09:39→13:52)
[2019-07-03] MEDS ORDERED: NS 1,000 ML IV SCH (10:45)
--- NOTE | 2019-07-03 12:21 | Diag Imaging Result Doc PS360 ---
EXAM: CT ANGIOGRM PULMONARY ARTERIES 07/03/2019 HISTORY: fever/ unexplained hypoxia/ recent hip fracture TECHNIQUE: This exam was performed using automated exposure control, adjustment of mA or kV according to patient size, and/or use of iterative reconstruction technique. COMMENT: 3-D MIPS were performed. There are no previous studies. There are no filling defects in the pulmonary arteries. The aorta is not distended and there is no evidence of dissection. There is a hiatal hernia. There are bilateral pleural effusions. There is increased interstitial opacity and groundglass opacity is present in the posterior upper lobes and both lower lobes. There is a hemangioma in the left side of T12. There are degenerative disc changes in the thoracic spine. IMPRESSION: Bilateral pleural effusions and pulmonary edema. Electronically signed by Angelo Barclay 07/03/2019 12:18 PM
[2019-07-03] MEDS ORDERED: MUCINEX DM PO ONE (14:17)
--- NOTE | 2019-07-03 14:58 | ORTHOPAEDICS PROGRESS NOTE ---
DATE: 07/03/2019 SUBJECTIVE: No acute events overnight. The patient spiked a fever yesterday, and was requiring some oxygen by nasal cannula. Pulmonary arteriogram was ordered today, which was negative for any type of pulmonary embolus. It did show some pulmonary edema and infiltrates. She has been ambulating well with Physical Therapy, and went 120 feet yesterday and 70 feet this morning. She states her hip pain is improving and tolerable. She still reports decreased appetite. She is urinating voluntarily. LABORATORY DATA: Hematocrit 33. OBJECTIVE: Vital Signs: Afebrile. Vital signs are stable. Last fever was 101.5 documented at midnight. Extremities: Examination of the left lower extremity shows surgical dressing to be clean, dry, intact. Thigh and calf are soft and compressible. Toes are up and downgoing. ASO brace is in place in good position on the ankle. ASSESSMENT: A 68-year-old female status post closed reduction percutaneous pinning of left femoral neck fracture. PLAN: 1. The patient will continue to be weightbearing as tolerated, left lower extremity. Physical Therapy to mobilize. She needs to wear her lace-up ASO brace for her lateral malleolus ankle fracture. 2. Lovenox for deep venous thrombosis prophylaxis. 3. Appreciate hospitalist recommendations. 4. Disposition. The patient is planning on being discharged to a longterm facility once medically stable. She will follow up with me in clinic in 2 weeks for a wound check and x- rays. cc: Marcelo Arroyo MD
[2019-07-03] MEDS: ATARAX PO SCH (20:18)
[2019-07-03] MEDS: COLACE PO SCH (20:18)
[2019-07-03] MEDS: COZAAR PO SCH (20:19)
[2019-07-03] MEDS: MORPHINE IV PRN (20:26)
--- NOTE | 2019-07-03 21:49 | PROGRESS NOTE ---
DATE: 07/03/2019 SUBJECTIVE: Upon my arrival this morning, the patient stated she was doing reasonably well. She was requiring oxygen to maintain adequate saturations. Upon removing her oxygen, the patient's saturation dropped precipitously. For this reason, a CT scan of the chest was performed, revealing bilateral pleural effusions and pulmonary edema only. This evening upon my arrival, the patient stated she felt reasonably well. Her last true fever was at midnight on 07/19/2002. Energy level is improving. P.o. intake is adequate. She denies nausea, vomiting, or chest discomfort. OBJECTIVE: Vital Signs: T-max 101.5, heart rate 87 to 104, respirations 14 to 17, blood pressure 101 to 131 over 45 to 57. General: Well nourished, well developed, in no acute distress. Cardiovascular: Regular rate and rhythm. No significant murmurs, rubs, or gallops. Pulmonary: Clear to auscultation bilaterally. Abdomen: Soft, nontender, nondistended. Positive bowel sounds. Extremities: Moves all extremities well. No significant clubbing, cyanosis, or edema. Dermatologic: Evaluation reveals no evidence of rash. LABORATORY DATA: White blood cell count 7.62, hemoglobin 10.4, hematocrit 32.7, platelet count 185,000. Sodium 136, potassium 3.9, chloride 100, bicarb 26, BUN 9, creatinine 0.5, glucose 115, calcium 8.5. Total bilirubin 1.16, total protein 6.1, albumin 3.1, alkaline phosphatase 47, AST 1,3 ALT 15. ASSESSMENT AND PLAN: 1. Left hip fracture - The patient is postoperative day number 4, closed reduction and percutaneous pinning of a left valgus impacted femoral neck fracture. The patient tolerated the procedure quite well. Pain is reasonably controlled with narcotic intervention. We will continue physical therapy. I anticipate rehabilitation in the near future. 2. Fevers - The last fever was at midnight. CT scan of the chest revealed no definitive etiology. She does complain of congestion and sinus tenderness. We will continue levofloxacin therapy. 3. Hypoxia - Interestingly, patient's extent of hypoxia is out of proportion to examination or laboratory findings. We will continue supportive care for now. We will hold off on diuresis until tomorrow, as she just had a CT scan with contrast. We will follow this. 4. Left ankle fracture - The patient was diagnosed approximately 1 month prior to admission. We will continue physical therapy. 5. Hypertension - Blood pressure is controlled on her current regimen. 6. Impaired fasting glucose - Patient is treated nonmedically. We will remain aware. 7. History of intracranial meningioma - CT scan upon admission suggested stability. We will remain aware. 8. Chronic pruritus - We will continue hydroxyzine therapy. 9. Disposition. At this point, patient continues to require detention care in the hospital setting. We will plan discharge to rehabilitation once appropriate. cc: Marcelo Arroyo MD
[2019-07-03] MEDS: MUCINEX DM PO SCH (22:07)
[2019-07-04] MEDS: PRILOSEC PO SCH ×2 (05:31→06:42)
[2019-07-04] MEDS: LOVENOX SUBQ SCH (05:31)
[2019-07-04 05:54] LABS: BASO# 0.02 X1000 (0.0-0.2); BASO% 0.3 % (0.0-0.8); EOS# 0.42 X1000 (0.0-0.7); HEMATOCRIT 32.3 % (37.0-47.0); HEMOGLOBIN 10.3 g/dL (12.0-16.0); LYMPH# 1.18 X1000 (1.2-3.4); LYMPH% 19.6 % (20.5-51.1); MCH 28.8 PG (27-31); MCHC 31.9 g/dL (33-37); MCV 90.2 FL (81-99); MONO# 0.87 X1000 (0.11-0.59); MONO% 14.5 % (1.7-9.3); MPV 9.4 FL (7.4-10.4); NEUT# 3.52 X1000 (1.4-6.5); NEUT% 58.6 % (42.2-75.2); PLT 199 X1000 (130-400); RBC 3.58 XMIL (4.2-5.4); RDW 13.3 % (11.5-14.5); WBC 6.01 X1000 (4.8-10.8)
[2019-07-04] MEDS: MORPHINE IV PRN (06:16)
[2019-07-04 06:40] LABS: AGAP 11; BUN 11 mg/dL (8-22); CALCIUM 8.6 mg/dL (8.8-10.2); CHLORIDE 101 mmol/L (98-107); COSMO 275; CREATININE 0.4 mg/dL (0.5-0.9); ESTIMATED GFR > 60; GLUCOSE 103 mg/dL (70-104); POTASSIUM 4.1 mmol/L (3.5-5.1); SODIUM 138 mmol/L (136-145); TCO2 26 mmol/L (25-35)
[2019-07-04] MEDS: MUCINEX DM PO SCH ×2 (07:30→08:43)
[2019-07-04] MEDS: LEVAQUIN PO SCH (08:48)
[2019-07-04] MEDS: NORVASC PO SCH (08:48)
[2019-07-04] MEDS: LEXAPRO PO SCH (08:48)
[2019-07-04] MEDS: FERROUS SULFATE PO SCH (08:48)
[2019-07-04] MEDS: PERIDEX MT SCH (08:49)
[2019-07-04 11:42] VITALS: BP 128/73
[2019-07-04] MEDS: OXY IR PO PRN (12:49)
--- NOTE | 2019-07-04 14:00 | DISCHARGE SUMMARY ---
ADMISSION DATE: 06/29/2019 DISCHARGE DATE: 07/04/2019 ADMISSION DIAGNOSIS: Left hip pain. DISCHARGE DIAGNOSES: 1. Left valgus impacted femoral neck fracture. 2. Fevers, resolved. 3. Hypoxia, resolved. 4. Left ankle fracture, present on arrival. 5. Hypertension, present on arrival. 6. Impaired fasting glucose present on arrival. 7. History of an intracranial meningioma present on arrival. 8. Chronic pruritus, present on arrival. CONSULTATIONS: Dr. Odonnell with orthopedic surgery was consulted for further evaluation and management of a left hip fracture. PROCEDURES: 1. A closed reduction and percutaneous pinning of a left valgus impacted femoral neck fracture was performed on 06/29/[address] Odonnell. 2. CT scan of the head was performed on 06/29/2019 which revealed no acute process. 3. CT scan of the pelvis was performed on 06/29/2019 which revealed impacted subcapital left hip fracture. 4. Ankle x-ray was performed on 06/29/2019 which revealed an incompletely healed distal fibular fracture. 5. CT pulmonary angiogram was performed on 07/03/2019 which revealed bilateral pleural effusions and pulmonary edema. HISTORY AND PHYSICAL EXAMINATION: See admit note. Physical examination prior to discharge of temperature 98.2 degrees, heart rate 91, respirations 18, and blood pressure 128/73. General: Well nourished, well developed in no acute distress. Cardiovascular: Regular rate and rhythm. No significant murmurs, rubs, or gallops. Pulmonary: Clear to auscultation bilaterally. Abdomen: Soft, nontender, and nondistended. Positive bowel sounds. Extremities: Moves all extremities well. No significant clubbing, cyanosis, or edema. Dermatologic: Evaluation reveals a dressed left hip incision. LABORATORY DATA: Prior to discharge, white blood cell count 6.01, hemoglobin 10.3, hematocrit 32.3 and platelet count 199,000. Sodium 138, potassium 4.1, chloride 101, bicarb 26, BUN 11, creatinine 0.4, glucose 103, and calcium 8.6. HOSPITAL COURSE: The patient was admitted as per history and physical examination. Hospital course per condition is as follows. 1. Left hip fracture-upon admission, patient was diagnosed with a left hip fracture. Patient was taken on the day of admission for surgical intervention as described above. Patient tolerated this procedure quite well. Postoperative course was complicated by fevers as fevers and hypoxia as described below. From an orthopedic standpoint, she did quite well and progressed as expected with physical therapy. The patient will be discharged to rehabilitation with weightbearing as tolerated. Surgical fidel will be scheduled for removal per Dr. Contreras recommendations. Followup with him will need to be scheduled within 2 weeks. 1. Fevers-while hospitalized, patient developed a temperature as high as 102.1 degrees. Rapid flu returned negative. Chest x-ray suggested small pleural effusions. CT angiogram returned as described above. At this point, patient's only other symptoms included nasal and sinus congestion. The patient was started on levofloxacin therapy. With time, fever resolved. Patient will complete 7 additional days of levofloxacin as an outpatient. At time of discharge, patient was 24 hours without a fever. 2. Hypoxia-postoperatively, patient was noted to have hypoxia out of proportion to her examination. CT scan returned as described above. With improved ambulation and time, patient's hypoxia resolved. At time of discharge, her oxygen saturations were acceptable on room air. We will continue to encourage incentive spirometry and activity. 3. Left ankle fracture-patient was diagnosed approximately 1 month prior to admission. X-ray suggested incomplete healing. At this point, she is also being treated with weightbearing as tolerated. She will follow with Dr. Odonnell in this regard as well. 4. Hypertension-the patient has longstanding disease. She was continued on her home medications with adequate control. 5. Impaired fasting glucose-once again, patient has longstanding disease. Blood sugars remained adequately controlled while hospitalized. 6. History of intracranial meningioma-CT scan of the brain upon admission returned with stability. The patient is followed as an outpatient. We will remain aware. 7. Chronic pruritus-symptoms remained reasonably controlled with home dose of nightly hydroxyzine. DISCHARGE CONDITION: Good. DISPOSITION: Discharged to rehabilitation. MEDICATIONS: 1. Acetaminophen 650 mg every 6 hours as needed. 2. Alprazolam 0.25 mg twice daily as needed. 3. Amlodipine 2.5 mg twice daily. 4. Flexeril 10 mg 3 times daily as needed. 5. Colace 200 mg at bedtime. 6. Lexapro 20 mg daily. 7. Magnolia cough lozenges as needed. 8. Iron Sulfate 325 mg daily for 1 month. 9. Mucinex DM twice daily. 10. Hydroxyzine 25 mg at bedtime. 11. Levofloxacin 500 mg daily. 12. Losartan 100 mg at bedtime. 13. Omeprazole 40 mg daily. 14. Oxycodone 5 mg 1/2 to 1 tablet every 4 hours as needed for pain. 15. Enoxaparin/anticoagulation per Dr. Odonnell. FOLLOW-UP: Patient is to follow up with me upon discharge from rehabilitation. Patient is follow up with Dr. Odonnell in 2 weeks. cc: Marcelo Arroyo MD
== END 2019-07-04 14:40 | DRG 482 ==
LOC: ED 08:47 → EDIPHOLD 11:43 → 4N 17:33
PROVIDERS: ADMIT Internal Medicine; ATTEND Internal Medicine